=== PATIENT | female | born 1995 | race Caucasian/White ===

== ENCOUNTER → 2017-02-23 11:39 | Observation (INO) ==
[2017-02-23 09:07] LABS: Bilirubin,Urine Negative (Negative); Blood,Urine Moderate (Negative); Clarity,Urine Cloudy (Clear); Color,Urine Yellow (Yellow); Glucose,Urine (UA) Normal (Normal); Ketones,Urine Negative (Negative); Leukocyte Esterase,Urine Negative (Negative); Nitrite,Urine Negative (Negative); PH,Urine 6.5 pH Units (5.0-8.0); Protein,Urine Negative (Neg-Trace); Specific Gravity,Urine 1.022 (1.010-1.025); Urobilinogen,Urine Normal (Normal)
[2017-02-23 09:11] LABS: Bacteria,Urine Few per hpf (None-Few); Hyaline Casts,Urine None Seen per lpf (None-Few); Squamous Epithelial Cell,Urine Many per lpf (None-Few)
[2017-02-23 09:43] LABS: Amphetamine Screen,Urine Negative ng/mL (Cutoff=1000); Barbiturate Screen,Urine Negative ng/mL (Cutoff=200); Benzodiazepines Screen,Urine Negative ng/mL (Cutoff=200); Cannabinoid Screen,Urine Positive ng/mL (Cutoff = 50); Cocaine Screen,Urine Negative ng/mL (Cutoff= 300); Opiate Screen,Urine Negative ng/mL (Cutoff=300); Phencyclidine Screen,Urine Negative ng/mL (Cutoff=25)
--- NOTE | 2017-02-23 09:52 | OB/GYN History & Physical ---
Date of Encounter: 02/23/17 Time of Encounter: 09:42 Assessment and Plan (1) uterine contractions in third trimester, antepartum Current visit: Yes Status: Acute Reactive NST Nubain for pain control IV fluid bolus Consider SQ terbutaline if uterine irritability does not resolve with fluids and pain medication Extended monitoring Anticipate discharge home with labor precautions. Follow up in the office as scheduled and prn. (2) 31 weeks gestation of Current visit: Yes Status: Acute History of Present Illness Chief complaint: Contractions HPI: Ms. Gill is a 21 year old at 31 weeks and 5 days gestation that arrived to triage with c/o contractions that started at 0400. She denies headache, vision changes, epigastric pain, vaginal bleeding, and vaginal discharge. She has a history of gestational diabetes, Factor V, and multiple miscarriages. She admits to smoking marijuana regularly. She is seen by Dr Hale in the office and M. She denies intercourse in the past 48 hours. She states she only drinks milk and water and averages 7 16 oz bottles of water daily. Past Med Surg Social Fam HX - Past Medical History Medical history: other Psychiatric history: no psych history - Past Surgical History Surgical History: no surgical history - Social History Smoking Status: Former smoker Smokeless Tobacco Status: No Alcohol use: none Drug use: marijuana - Family History Father Living Status: Still Living Hx Family Endocrine Disorder: Yes (diabetes) Obstetrical History - Pregnancies : 5 Para: 0 Term: 0 : 0 Ab's: 4 Livin Medications and Allergies Enoxaparin [Lovenox] 40 mg SQ DAILY 09/02/16 [History] Pnv Cmb#21/Iron/Folic Acid [ Complete Caplet] 1 each PO DAILY 09/02/16 [ History] Progesterone,Micronized [Progesterone] 200 mg PO HS 09/02/16 [History] Docusate [Colace] 300 mg PO DAILY 12/03/16 [History] 3 Allergy/AdvReac Type Severity Reaction Status Date / Time No Known Allergies Allergy Verified 12/03/16 10:13 Review of System OB All systems PM: reviewed and no additional remarkable complaints except as stated Exam - Constitutional Constitutional: well developed, well nourished, no acute distress, average body habitus - HEENT HEENT: Normocephaly, Mucus Membranes Moist - Neck Neck exam: full ROM - Lungs Respiratory exam: CTAB - Cardiovascular Cardiovascular exam: RRR, +S1, +S2 - Abdomen Abdomen: Present: bowel sounds normal, gravid. Absent: non tender (Patient c/o lower back pain and suprapubic pain that comes and goes 7/10. No CVA tendernes present. Contractions palpate mild. ) - Extremities Extremities exam: normal capillary refill, normal inspection, radial pulses palpable and symmetrical - Vulva Vulva: bilateral: normal - Vagina Vagina: Present: normal moisture. Absent: discharge - Cervix Dilation: 0 (FT) Effacement: 50 Station: -4 - Comments Comments: SSE - cervix visually closed, normal vaginal moisture/discharge for gestation. Results Abnormal lab results Urine Clarity Cloudy (Clear) A 02/23/17 08:58 Urine Blood Moderate (Negative) H 02/23/17 08:58 Urine Microscopic RBC 5-15 per hpf (0-3) H 02/23/17 08:58 Urine Microscopic WBC 3-5 per hpf (0-3) H 02/23/17 08:58 Ur Squamous Epith Cells Many per lpf (None-Few) H 02/23/17 08:58 All other labs normal. - VTE Reasons for not Prescribing Prophylaxis: Treatment not Indicated - Low risk for VTE
[~2017-02-23 11:39] MED LIST: *HR* Nalbuphine 20 MG/ML AMPUL IVP PRN; Ringers Solution, Lactated 500 ML IVC ONE; Ringers Solution, Lactated 500 ML ONE
== END | disposition home or self-care (01) ==
LOC: 1NENULAB
PROVIDERS: ADMIT Advanced Practice Midwife; ATTEND Advanced Practice Midwife

== ENCOUNTER 2017-04-01 17:16 | Observation (INO) ==
[2017-04-01 13:21] LABS: Bilirubin,Urine Negative (Negative); Blood,Urine Moderate (Negative); Clarity,Urine Clear (Clear); Color,Urine Yellow (Yellow); Glucose,Urine (UA) Normal (Normal); Ketones,Urine Negative (Negative); Leukocyte Esterase,Urine Trace (Negative); Nitrite,Urine Negative (Negative); PH,Urine 6.5 pH Units (5.0-8.0); Protein,Urine Negative (Neg-Trace); Specific Gravity,Urine 1.019 (1.010-1.025); Urobilinogen,Urine Normal (Normal)
[2017-04-01 13:27] LABS: Bacteria,Urine Moderate per hpf (None-Few); Hyaline Casts,Urine None Seen per lpf (None-Few); Squamous Epithelial Cell,Urine Many per lpf (None-Few)
[2017-04-01 13:43] LABS: Amphetamine Screen,Urine Negative ng/mL (Cutoff=1000); Barbiturate Screen,Urine Negative ng/mL (Cutoff=200); Benzodiazepines Screen,Urine Negative ng/mL (Cutoff=200); Cannabinoid Screen,Urine Negative ng/mL (Cutoff = 50); Cocaine Screen,Urine Negative ng/mL (Cutoff= 300); Opiate Screen,Urine Negative ng/mL (Cutoff=300); Phencyclidine Screen,Urine Negative ng/mL (Cutoff=25)
[2017-04-01 13:46] LABS: Basophils % 0.3 %; Eosinophils # 0.1 K/mcL (0.0-0.6); Eosinophils % 0.4 %; Hematocrit 38.3 % (35.3-44.9); Hemoglobin 12.9 g/dL (11.5-15.4); Immature Granulocytes % 1.5 % (0-4); Lymphocytes # 2.1 K/mcL (0.6-4.6); Lymphocytes % 18.2 %; Mean Corpuscular HGB Conc 33.7 g/dL (31.6-35.5); Mean Corpuscular Hemoglobin 31.6 pg (28.0-33.3); Mean Corpuscular Volume 93.9 fL (83.0-100.0); Mean Platelet Volume 12.2 fL (9.4-12.4); Monocytes # 0.7 K/mcL (0.0-1.3); Monocytes % 6.2 %; Neutrophils # 8.6 K/mcL (1.6-8.9); Platelet Count 162 K/mcL (140-400); Red Blood Count 4.08 M/mcL (3.82-4.97); Red Cell Distribution Width 12.9 % (11.5-14.5); Segmented Neutrophils % 73.4 %
[2017-04-01 13:58] LABS: Albumin 3.7 g/dL (3.5-5.7); Bilirubin,Direct 0.1 mg/dL (0.0-0.2); Bilirubin,Indirect 0.2 mg/dL (0.0-1.2); Bilirubin,Total 0.3 mg/dL (0.3-1.0)
[2017-04-01 14:04] LABS: Albumin/Globulin Ratio 1.1 (1.1-2.2); Globulin 3.4 g/dL (2.4-3.5); Total Protein 7.1 g/dL (6.4-8.9)
[~2017-04-01 17:16] MED LIST changes: -Ringers Solution, Lactated 500 ML IVC ONE; -Ringers Solution, Lactated 500 ML ONE
--- NOTE | 2017-04-01 17:32 | OB/GYN Progress Note ---
Date of Encounter: 04/01/17 Time of Encounter: 14:20 - Assessment and Plan (1) 37 weeks gestation of Status: Acute (2) Left upper quadrant pain Status: Acute Plan: - amylase, lipase normal - Liver enzymes normal - UA hemolysis - US retroperitoneal insignificant findings - reactive NST - Nubain given for pain x1 Discharge home with tylenol and heat application for pain. Pain likely musculoskeletal in origin. Follow up in office with routine care and PRN. (3) Gestational diabetes Status: Acute Qualifiers: Gestational diabetes mellitus control: unspecified Trimester: third trimester Qualified Code(s): O24.419 - Gestational diabetes mellitus in , unspecified control (4) NST (non-stress test) reactive Status: Acute Subjective - Subjective Principal diagnosis: left upper quadrant pain Interval history: Jacqui is a 22-year-old female at 37+0 week presented to labor and delivery for a left upper quadrant abdominal pain. Patient states that pain began around 10:30 this morning after bending over and is intermittently sharp and does not continuously start. Patient denies having back pain, nausea, vomiting. Pain is currently 10/10 and worsened when taking deep breaths. Patient states that pain is not worsened when walking around. Patient has not had an appendectomy or cholecystectomy. Patient has had a history of kidney stones 3. Patient states that this does not feel like her previous kidney stones. Patient states she had her last bowel movement 2 days ago and this does not feel like constipation to her. Patient denies vaginal bleeding, leakage of fluid, contractions. Reports active movement. Patient's is complicated by gestational diabetes. Antepartum ROS: movement normal, no loss of fluid, no vaginal bleeding, no contractions Objective - Vital Signs Vital Signs: Intake and Output 04/01/17 04/01/17 04/01/17 07:59 15:59 23:59 Other: Weight 106 kg Patient Weight 04/01/17 23:59 Weight 106 kg - Exam FHR: auscultation normal (Reactive NST FHTs 150), category 1 Auscultation: bilateral: normal Abdomen: Present: normal appearance (nontender to palpation. Pain not reproducable), soft, gravid. Absent: tenderness Uterus: Present: normal. Absent: firm, tenderness - Labs Labs: Abnormal lab results WBC 11.7 K/mcL (4.3-11.1) H 04/01/17 13:36 Alkaline Phosphatase 116 Units/L (34-104) H 04/01/17 13:36 Urine Blood Moderate (Negative) H 04/01/17 13:14 Ur Leukocyte Esterase Trace (Negative) H 04/01/17 13:14 Urine Microscopic RBC 5-15 per hpf (0-3) H 04/01/17 13:14 Urine Microscopic WBC 5-15 per hpf (0-3) H 04/01/17 13:14 Ur Squamous Epith Cells Many per lpf (None-Few) H 04/01/17 13:14 Urine Bacteria Moderate per hpf (None-Few) H 04/01/17 13:14
[2017-04-01] MEDS ORDERED: Acetaminophen 325 MG TABLET PO ONE (18:41)
[2017-04-01] MEDS ORDERED: (Progesterone,Micronized [Progesterone] 200 MG) PO SCH (21:00)
[2017-04-02] MEDS ORDERED: *HR* Metformin 500 MG TABLET PO SCH (08:00)
[2017-04-02] MEDS ORDERED: Prenatal Vit/FA 1 EACH TABLET PO SCH (09:00)
[2017-04-02] MEDS ORDERED: *HR* Enoxaparin 40 MG/0.4 ML SYRINGE SQ SCH (09:00)
== END 2017-04-01 20:15 | disposition home or self-care (01) ==
LOC: 1NENULAB
PROVIDERS: ADMIT Obstetrics & Gynecology; ATTEND Obstetrics & Gynecology

== ENCOUNTER 2017-04-15 07:50 | Inpatient (IN) ==
[2017-04-15] MEDS ORDERED: Famotidine 20 MG/2 ML VIAL IVP PRN (08:15)
[2017-04-15] MEDS ORDERED: *HR* Nalbuphine 20 MG/ML AMPUL IVP PRN (08:15)
[2017-04-15] MEDS ORDERED: Naloxone 0.4 MG/ML INJ IVP PRN (08:15)
[2017-04-15 08:38] LABS: Basophils % 0.2 %; Eosinophils # 0.1 K/mcL (0.0-0.6); Eosinophils % 0.8 %; Hematocrit 37.6 % (35.3-44.9); Hemoglobin 12.5 g/dL (11.5-15.4); Immature Granulocytes % 1.6 % (0-4); Lymphocytes # 1.8 K/mcL (0.6-4.6); Lymphocytes % 18.7 %; Mean Corpuscular HGB Conc 33.2 g/dL (31.6-35.5); Mean Corpuscular Hemoglobin 31.3 pg (28.0-33.3); Mean Corpuscular Volume 94.2 fL (83.0-100.0); Mean Platelet Volume 12.2 fL (9.4-12.4); Monocytes # 0.5 K/mcL (0.0-1.3); Neutrophils # 7.1 K/mcL (1.6-8.9); Platelet Count 153 K/mcL (140-400); Red Blood Count 3.99 M/mcL (3.82-4.97); Red Cell Distribution Width 12.9 % (11.5-14.5); Segmented Neutrophils % 73.7 %
[2017-04-15 08:56] LABS: Amphetamine Screen,Urine Negative ng/mL (Cutoff=1000); Barbiturate Screen,Urine Negative ng/mL (Cutoff=200); Benzodiazepines Screen,Urine Negative ng/mL (Cutoff=200); Cannabinoid Screen,Urine Positive ng/mL (Cutoff = 50); Cocaine Screen,Urine Negative ng/mL (Cutoff= 300); Opiate Screen,Urine Negative ng/mL (Cutoff=300); Phencyclidine Screen,Urine Negative ng/mL (Cutoff=25)
[2017-04-15] MEDS ORDERED: miSOPROStol 100 MCG TABLET PO ONE (09:10)
--- NOTE | 2017-04-15 09:29 | OB Labor Progress Note ---
Date of Encounter: 04/15/17 Time of Encounter: 09:27 Labor Progress Note - Subjective Subjective: Patient resting in bed. Discussed POC with patient. Patient denies any questions or concerns. - Cervix Cervix: 2/80/-1 - Heart Tones Heart Tones: 145 bpm moderate variability +15x15 accels no decels noted. Cat 1 tracing - [place]: irregular - Interventions Interventions: SVE, Gross catheter placed for IOL. 30cc sterile water placed in gross balloon. Patient tolerated well. - Plan Plan: Continue labor management
[2017-04-15] MEDS ORDERED: Ringers Solution, Lactated 1,000 ML ONE ×4 (11:39→21:06)
--- NOTE | 2017-04-15 14:01 | OB/GYN History & Physical ---
Date of Encounter: 04/15/17 Time of Encounter: 08:00 Assessment and Plan (1) and not yet delivered in third trimester Current visit: Yes Status: Acute (2) 39 weeks gestation of Current visit: Yes Status: Acute (3) Elective induction of labor planned Current visit: Yes Status: Acute we will induce with gross catheter and cytotec (4) Factor 5 Leiden mutation, heterozygous Current visit: Yes Status: Acute (5) Gestational diabetes Current visit: No Status: Acute Qualifiers: Gestational diabetes mellitus control: unspecified Trimester: third trimester Qualified Code(s): O24.419 - Gestational diabetes mellitus in , unspecified control History of Present Illness HPI: Ms. Gill is a 22 year old female with a 5 para 0040 9-0/7 weeks by last menstrual period equal to a 8 and 1/7 week ultrasound who presented for induction of labor due to term . Patient is a gestational diabetic on metformin and has a history of a clotting disorder and had been on blood thinners by her speaker wirer prior to 38 weeks. She was on Lovenox this was recently switched over to heparin and then stopped. Patient was advised when she got into the 39 week range we would Go ahead and induce her. 0 positive, rubella positive GBS negative. Past Med Surg Social Fam HX - Past Medical History Medical history: other (gestational diabetes on metformin, factor 5 Leiden) Psychiatric history: anxiety, depression, prior suicide attempt - Past Surgical History Surgical History: no surgical history - Social History Smoking Status: Former smoker Smokeless Tobacco Status: No Alcohol use: none Drug use: marijuana Occupational status: unemployed Current living situation: Home - Independent Recent Out of Country Travel Within the Last 8 Weeks: No Exposure or Possible Exposure to Illness During Travel: No - Family History Father Adopted: No Living Status: Still Living Hx Family Cardiac Disorders: No Hx Family Respiratory Disorders: No Hx Family Cancer: No Hx Family GI Disorders: No Hx Family Genitourinary Disorders: No Hx Family Endocrine Disorder: Yes Hx Family Musculoskeletal Disorders: No Hx Family Neuromuscular Disorders: No Hx Family HEENT Disorders: No Hx Family Autoimmune Disorders: No Hx Family Reproductive Disorders: No Hx Family Psychosocial Disorders: No Hx Family Medical Disorders: No Obstetrical History - Pregnancies : 5 Para: 0 Term: 0 : 0 Ab's: 4 Livin Medications and Allergies Pnv Cmb#21/Iron/Folic Acid [ Complete Caplet] 1 each PO DAILY 09/02/16 [ History] Docusate [Colace] 300 mg PO DAILY 12/03/16 [History] metFORMIN [Glucophage] 500 mg PO 0800 03/04/17 [History] 3 Allergy/AdvReac Type Severity Reaction Status Date / Time No Known Allergies Allergy Verified 03/04/17 11:12 Review of System OB All systems PM: reviewed and no additional remarkable complaints except as stated Exam - Constitutional Constitutional: well developed, well nourished, no acute distress, average body habitus - HEENT HEENT: EOMI, PERRL, Mucus Membranes Moist - Neck Neck exam: full ROM - Cardiovascular Cardiovascular exam: RRR - Abdomen Abdomen: Present: bowel sounds normal, gravid - Cervix Dilation: 2 Effacement: 80 Station: -3 - Comments Comments: FHT's 140's occ contractions seen Results Result Diagrams: 04/15/17 08:29 04/15/17 08:30 Abnormal lab results Glucose 153 mg/dL (70-105) H 04/15/17 08:30 U Marijuana (THC) Screen Positive ng/mL (Cutoff = 50) H 04/15/17 08:29 All other labs normal. - VTE Reasons for not Prescribing Prophylaxis: Treatment not Indicated - Low risk for VTE
[2017-04-15] MEDS ORDERED: Oxytocin 20 units/ LR 1000 mL 20 UNIT/1,000 ML BAG IVC SCH (15:15)
--- NOTE | 2017-04-15 16:08 | OB Labor Progress Note ---
Date of Encounter: 04/15/17 Time of Encounter: 16:05 Labor Progress Note - Subjective Subjective: Patient resting in bed. Patient denies any pain at this time. Pitocin at 2 milliunits. Discussed POC with patient. Patient denies any questions or concerns. - Cervix Cervix: 5.5/80/-1 - Heart Tones Heart Tones: 135 bpm moderate variability +15x15 accels no decels noted. CAt. 1 tracing - [place] Vesta: 3-3.5 min apart - Interventions Interventions: SVE, AROM moderate amount of clear fluid. IUPC placed without difficulty. Patient tolerated well. - Plan Plan: Continue labor management Patient to get Epidural when desires for pain management
[2017-04-15] MEDS ORDERED: Epidural Premix (fent/bupiv) 110 ML EP SCH (16:15)
[2017-04-15] MEDS ORDERED: Epidural Premix (fent/bupiv) 110 ML EP ONE (16:25)
--- NOTE | 2017-04-15 17:27 | Anesthesia Evaluation PreOp ---
<Zully Oneal R - Last Filed: 04/15/17 17:25> Date of Encounter: 04/15/17 Time of Encounter: 16:30 - Past History Planned Operation: [facility] Cardiac History: Denies any Significant Hx Pulmonary History: Denies Any Significant HX SPEEDER FRAME TENDER History: Denies Any Significant HX Other Medical History: Denies Any Significant HX Anesthesia History: No Prior Anesthetic Complications : Yes (39) Test: Positive Alcohol Use: none Drug use: none, marijuana Medications and Allergies Pnv Cmb#21/Iron/Folic Acid [ Complete Caplet] 1 each PO DAILY 09/02/16 [ History] Docusate [Colace] 300 mg PO DAILY 12/03/16 [History] metFORMIN [Glucophage] 500 mg PO 0800 03/04/17 [History] 3 Allergy/AdvReac Type Severity Reaction Status Date / Time No Known Allergies Allergy Verified 03/04/17 11:12 - Meds/Allergy Pre-op Review Medications Reviewed: Yes Allergies Reviewed: No Beta Blockers on Current Med List: No Anesthesia Results - Labs 04/15/17 08:29 04/15/17 08:30 Anesthesia Exam - HEENT Pupil (Motor): Pupils equal Mallampati: II Teeth: Normal Oral Opening: Greater than 3 - SPEEDER FRAME TENDER LOC: Oriented SPEEDER FRAME TENDER Motor: Normal RUE, Normal LUE, Normal RLE, Normal LLE, Normal Face SPEEDER FRAME TENDER Sensory: Normal: RUE, LUE, RLE, LLE, Face - Cardiac Rhythm: Regular Murmur: None JVD: No Carotid Bruit: No - Pulmonary Breath Sounds: bilateral Clear Respiratory Effort: Symmetrical - Additional Findings factor 5 clotting disorder last heparin dose [address] Martinez will proceed with [facility] Anesthesia Assess/Plan ASA Score: 2 Modified Cunningham Scale for Level of Consciousness: Cooperative, oriented, and tranquil Anesthetic Plan: Regional Autologous Blood: No Monitoring Plan: Standard Monitors <Nilton Hale - Last Filed: 04/15/17 20:59> Date of Encounter: 04/15/17 Anesthesia Results - Labs 04/15/17 08:29 04/15/17 08:30
--- NOTE | 2017-04-15 17:30 | Anesthesia Procedures ---
Date of Encounter: 04/15/17 Time of Encounter: 16:30 Procedures: Anesthesia - Epidural/Spinal Patient ID/Chart reviewed: Yes Patient examined: Yes OB Eval: Gestational age: 39 OB Eval: : 5 OB Eval: Hx Para: 0 OB Eval: Contractions: Non-stressed pattern Consent Obtained: Yes Supplemental Oxygen: None/Room Air Site Prep: Aseptic Technique, Sterile prep and drape, Povidone-Iodine 1% Patient position: upright Amount of Local Anesthetic used: 3 Touhy Needle Gauge: 18 Touhy Needle Depth (cm): 8 Catheter Depth at Skin (cm): 12 Test Dose (1.5% Lido + Epi): Volume given (mls): 3 Test Dose Result: Negative Loading Dose Administered: Thru Catheter Infusion Rate (mls/hr): [address]: Tegaderm, Tape Interspace Used: L4-L5 Loss of Resistance (ALO): Yes Blood: No CSF: No Paresthesia: No Vitals + FHT's: stable throughout see nursing notes
--- NOTE | 2017-04-15 17:59 | OB Labor Progress Note ---
Date of Encounter: 04/15/17 Time of Encounter: 18:00 Labor Progress Note - Subjective Subjective: Patient comfortable after epidural not feeling contractions anymore. - Cervix Cervix: 5/80/-1 - Heart Tones Heart Tones: heart tones 140s reactive - [place] Che[place]: Contractions every 2 minutes and adequate - Plan Plan: Continue current care
--- NOTE | 2017-04-15 21:01 | OB Labor Progress Note ---
Date of Encounter: 04/15/17 Time of Encounter: 21:00 Labor Progress Note - Subjective Subjective: patient still comfortable - Cervix Cervix: 8/90/+1 - Heart Tones Heart Tones: FHT's 140's reactive - [place]: contractions every 2 min - Plan Plan: anticipate
[2017-04-15] MEDS ORDERED: Lidocaine -MPF 1% 2 ML VIAL ONE (23:38)
--- NOTE | 2017-04-16 00:20 | OB/GYN Procedure Note ---
Delivery - Delivery Date: 04/16/17 Provider: Nilton Hale Intrapartum events: none Delivery induction: AROM, oxytocin, gross, misoprostol Delivery monitor: external FHT, external uterine, internal uterine Anesthesia: local, epidural Estimated Blood Loss: 100 - Infant (s) A Delivery Date: 04/15/17 Delivery Time: 23:22 Presentation: vertex Position: JONATHAN Route of delivery: Gender: Male Viability: Viable Pounds: 7 Ounces: 14 Weight Gram: 3.58 kg at 1 minute: 8 at 5 mins: 9 Shoulder Dystocia: not encountered Specimens collected: cord blood Placenta: spontaneous Cord: 3 umbilical vessels - Repair Episiotomy: none Laceration Description: Perineal - 2nd Degree - Complications Delivery complications: none Delivery comments: of a viable male in JONATHAN presentation at 2322, OB Alexia, 1st Assist Gloria OMS 3, anesthesia epidural local, 2nd degree laceration noted repaired with 3 O vicryl usual fashion, cervix vagina intact, EBL 100cc. - Disposition Mom disposition: stable in LDR disposition: stable in LDR
[2017-04-16] MEDS ORDERED: Oxytocin 20 units/ LR 1000 mL 20 UNIT/1,000 ML BAG IVC ONE (02:11)
[2017-04-16] MEDS ORDERED: Oxytocin 20 units/ LR 1000 mL 20 UNIT/1,000 ML BAG IVC SCH (02:11)
[2017-04-16] MEDS ORDERED: *HR* HYDROcodone/Acet 5/325 mg TABLET PO PRN (02:11)
[2017-04-16] MEDS ORDERED: Measles/Mumps/Rubella Vacc 0.5 ML VIAL SQ PRN (02:11)
[2017-04-16] MEDS ORDERED: Acetaminophen 325 MG TABLET PO PRN (02:11)
[2017-04-16 04:52] LABS: Basophils % 0.1 %; Hematocrit 35.4 % (35.3-44.9); Immature Granulocytes % 0.8 % (0-4); Lymphocytes # 1.3 K/mcL (0.6-4.6); Lymphocytes % 7.7 %; Mean Corpuscular HGB Conc 33.9 g/dL (31.6-35.5); Mean Corpuscular Volume 94.4 fL (83.0-100.0); Mean Platelet Volume 12.4 fL (9.4-12.4); Monocytes # 0.9 K/mcL (0.0-1.3); Monocytes % 5.1 %; Neutrophils # 14.5 K/mcL (1.6-8.9); Platelet Count 143 K/mcL (140-400); Red Blood Count 3.75 M/mcL (3.82-4.97); Red Cell Distribution Width 12.8 % (11.5-14.5); Segmented Neutrophils % 86.3 %
[2017-04-16] MEDS: Prenatal Vit/FA 1 EACH TABLET PO SCH (07:58)
[2017-04-16] MEDS ORDERED: NON-FORMULARY MEDICATION 1 EACH EACH (Pnv Cmb#21/Iron/Folic Acid [Prenatal Complete Caplet PO SCH (09:00)
--- NOTE | 2017-04-16 10:08 | OB/GYN Progress Note ---
Date of Encounter: 04/16/17 Time of Encounter: 10:06 - Assessment and Plan (1) Vaginal delivery Current Visit: Yes Status: Acute Continue routine care. Meeting day one milestones. Anticipate discharge tomorrow. (2) Factor 5 Leiden mutation, heterozygous Current Visit: Yes Status: Acute Aspirin 81 mg ordered daily. To start now. Plan to discharge home with same dose. (3) Gestational diabetes Current Visit: No Status: Acute Patient was on Metformin during . BS today was 153 but was drawn shortly after breakfast Fasting blood sugar scheduled for 0400 tomorrow. Qualifiers: Gestational diabetes mellitus control: unspecified Trimester: third trimester Qualified Code(s): O24.419 - Gestational diabetes mellitus in , unspecified control (4) Breast feeding status of mother Current Visit: Yes Status: Acute support prn (5) History of suicide attempt Current Visit: Yes Status: Acute Social service consult ordered. Will begin Zoloft 25 mg po daily for one week then increase to 50 mg daily. Subjective - Subjective Principal diagnosis: S/P vaginal delivery Interval history: Patient resting in bed this morning. States she is completely pain free and feels great. When asked about Lovenox , patient states her crystal lapper as well as Dr. Hale stated she would only need to continue if she had a . She states they told her she would need to take a baby Aspirin . Informed patient there will be a fasting blood sugar obtained in the morning. Patient with history of suicide attempt and depression. Requests restarting meds at this point. Patient reports: appetite normal, voiding normally, pain well controlled, ambulating normally : doing well Objective - Latest Vital Signs Latest vital signs: Vital Signs Temp Pulse Pulse Resp BP Pulse Ox 04/16/17 07:40 98.2 F 78 12 119/79 98 04/16/17 04:15 98.2 F 62 16 112/71 97 04/16/17 03:00 98.1 F 84 84 16 110/69 96 04/16/17 02:00 98.2 F 65 16 124/72 96 Intake and Output 04/15/17 04/16/17 04/16/17 23:59 07:59 15:59 Intake Total 240 / 240 Output Total 1050 / 1050 Balance -810 / -810 Intake: Oral 240 / 240 Output: Urine 1050 / 1050 Other: Meal snack - cereal Percent of Meal Consumed 100% Weight 104.5 kg Patient Weight 04/16/17 23:59 Weight 104.5 kg - Exam Lungs: bilateral: normal Chest: Normal S1, Normal S2 Extremities: Present: normal Abdomen: Present: normal appearance, soft Uterus: Present: normal, firm Uterus Position: 2 Fingers Below Umbilicus - Labs Labs: Laboratory Results - last 24 hr 04/15/17 04/16/17 08:30 04:21 WBC 16.8 H D RBC 3.75 L Hgb 12.0 Hct 35.4 MCV 94.4 MCH 32.0 MCHC 33.9 RDW 12.8 Plt Count 143 MPV 12.4 Immature Gran % 0.8 Seg Neutrophils % 86.3 Lymphocytes % 7.7 Monocytes % 5.1 Eosinophils % 0.0 Basophils % 0.1 Neutrophils # 14.5 H Lymphocytes # 1.3 Monocytes # 0.9 Eosinophils # 0.0 Basophils # 0.0 Glucose 153 H
[2017-04-16] MEDS: Aspirin 81 MG TAB.CHEW PO SCH (10:31)
[2017-04-16] MEDS: Ibuprofen 600 MG TABLET PO PRN (21:05)
[2017-04-17 08:24] VITALS: BP 119/76
--- NOTE | 2017-04-17 10:52 | Discharge Summary ---
Date of Encounter: 04/17/17 Time of Encounter: 10:48 - Discharge Diagnosis (1) Breast feeding status of mother Priority: Secondary Status: Acute (2) Factor 5 Leiden mutation, heterozygous Priority: Secondary Status: Acute Comments: Will discharge home on baby aspirin (3) History of suicide attempt Priority: Secondary Status: Acute Comments: We will discharge on Zoloft 25 mg, then increase to 50 mg after 1 week (4) Vaginal delivery Priority: Primary Status: Acute Comments: Anal managed on by mouth pain medication, tolerating diet, voiding without difficulty, patient desires discharge - Discharge Medications Prescriptions: Ibuprofen [Motrin] 600 mg PO Q6HR PRN #60 tablet PRN Reason: Cramping Breast Pump [BREAST PUMP] 1 each .ROUTE AD #1 each Docusate [Colace] 100 mg PO BID #60 capsule Sertraline [Zoloft] 25 mg PO DAILY #7 tablet Sertraline [Zoloft] 50 mg PO DAILY #30 tablet Home Medications: Pnv Cmb#21/Iron/Folic Acid [ Complete Caplet] 1 each PO DAILY 09/02/16 [ History] Acetaminophen [Tylenol] 650 mg PO Q6HR PRN tablet 04/17/17 [Rx] Aspirin 81 mg PO DAILY #0 tab.chew 04/17/17 [Rx] Breast Pump [BREAST PUMP] 1 each .ROUTE AD #1 each 04/17/17 [Rx] Docusate [Colace] 100 mg PO BID #60 capsule 04/17/17 [Rx] Ibuprofen [Motrin] 600 mg PO Q6HR PRN #60 tablet 04/17/17 [Rx] Vit/FA 1 each PO DAILY tablet 04/17/17 [Rx] Sertraline [Zoloft] 25 mg PO DAILY #7 tablet 04/17/17 [Rx] Sertraline [Zoloft] 50 mg PO DAILY #30 tablet 04/17/17 [Rx] Allergies/Adverse Reactions: 3 Allergy/AdvReac Type Severity Reaction Status Date / Time No Known Allergies Allergy Verified 03/04/17 11:12 Data Procedures and tests throughout hospitalization: Laboratory Tests 04/15/17 04/15/17 04/15/17 08:29 08:29 08:30 WBC 9.6 RBC 3.99 Hgb 12.5 Hct 37.6 MCV 94.2 MCH 31.3 MCHC 33.2 RDW 12.9 Plt Count 153 MPV 12.2 Immature Gran % 1.6 Seg Neutrophils % 73.7 Lymphocytes % 18.7 Monocytes % 5.0 Eosinophils % 0.8 Basophils % 0.2 Neutrophils # 7.1 Lymphocytes # 1.8 Monocytes # 0.5 Eosinophils # 0.1 Basophils # 0.0 Glucose 153 H POC Glucose Urine Opiates Screen Negative Ur Barbiturates Screen Negative Ur Phencyclidine Scrn Negative Ur Amphetamines Screen Negative U Benzodiazepines Scrn Negative Urine Cocaine Screen Negative U Marijuana (THC) Screen Positive H 04/16/17 04/17/17 04:21 04:40 WBC 16.8 H D RBC 3.75 L Hgb 12.0 Hct 35.4 MCV 94.4 MCH 32.0 MCHC 33.9 RDW 12.8 Plt Count 143 MPV 12.4 Immature Gran % 0.8 Seg Neutrophils % 86.3 Lymphocytes % 7.7 Monocytes % 5.1 Eosinophils % 0.0 Basophils % 0.1 Neutrophils # 14.5 H Lymphocytes # 1.3 Monocytes # 0.9 Eosinophils # 0.0 Basophils # 0.0 Glucose POC Glucose 82 Urine Opiates Screen Ur Barbiturates Screen Ur Phencyclidine Scrn Ur Amphetamines Screen U Benzodiazepines Scrn Urine Cocaine Screen U Marijuana (THC) Screen Labs on day of discharge: Labs from last 24 hours 04/17/17 04:40 POC Glucose 82 Date of admission: 04/15/17 07:50 Primary care physician: MARGARITA JAMES Consults: 04/16/17 02:11 Consult to Business Services Sales Representative [CONS] Routine Comment: Vaginal delivery, consult needed 04/16/17 09:58 Consult to Entry Level Accounting Clerk (W&C) [CONS] Routine Reason For Exam: Reason for SW Consult: Positive THC on admission Discharging clinician: Pat Hall Anticipated date of discharge: 04/17/17 - Patient Status Disposition: Home, Self-Care Condition: Good Functional capacity at discharge: independent ambulation Overall status at discharge: patient is back to baseline - Discharge Instructions Follow Up With: NONE,PCP [Primary Care Provider] - - Diet and Activity Activity: resume usual activities as tolerated Diet: regular diet Hospital Course Reason for admission: induction of labor, IUP at term Delivery: Episiotomy: none Laceration: 2nd degree Other procedures: none complications: none Discharge diagnosis: IUP at term delivered baby: male Hospital course: Delivery - Delivery Date: 04/16/17 Provider: Nilton Hale Intrapartum events: none Delivery induction: AROM, oxytocin, gross, misoprostol Delivery monitor: external FHT, external uterine, internal uterine Anesthesia: local, epidural Estimated Blood Loss: 100 - Infant (s) A Infant Delivery Date: 04/15/17 Delivery Time: 23:22 Presentation: vertex Position: JONATHAN Route of delivery: Gender: Male Viability: Viable Pounds: 7 Ounces: 14 Weight Gram: 3.58 kg at 1 minute: 8 at 5 mins: 9 Shoulder Dystocia: not encountered Specimens collected: cord blood Placenta: spontaneous Cord: 3 umbilical vessels - Repair Episiotomy: none Laceration Description: Perineal - 2nd Degree - Complications Delivery complications: none Delivery comments: of a viable male in JONATHAN presentation at 2322, OB Alexia, 1st Assist Gloria OMS 3, anesthesia epidural local, 2nd degree laceration noted repaired with 3 O vicryl usual fashion, cervix vagina intact, EBL 100cc. - Disposition Mom disposition: stable in , and appropriate for discharge Time Attestation: Total time spent providing and/or coordinating discharge services: Time Spent: Less than 30 minutes Exam - Constitutional Vitals: Temp Pulse Resp BP Pulse Ox 97.8 F 62 16 119/76 98 04/17/17 07:45 04/17/17 07:45 04/17/17 07:45 04/17/17 07:45 04/17/17 07:45 General appearance IM: A&O X 3 - Respiratory Respiratory exam: Present: CTAB - Cardiovascular Cardiovascular exam IM: Present: RRR - GI/Abdominal GI/Abdominal exam IM: soft - Uterine Tone: Firm Uterus Position: At Umbilicus - Extremities Exam Extremities exam IM: Present: normal capillary refill, normal inspection - Neurological Exam Neurological exam: normal gait, oriented X3 - Psychiatric Additional comments: Reports good mood, but patient does have history of suicide attempts, we will start Zoloft
[2017-04-17] MEDS: Ibuprofen 600 MG TABLET PO PRN (11:22)
[2017-04-17] MEDS: Aspirin 81 MG TAB.CHEW PO SCH (11:22)
[2017-04-17] MEDS: Prenatal Vit/FA 1 EACH TABLET PO SCH (11:22)
== END 2017-04-17 13:45 | disposition home or self-care (01) | DRG 560 ==
LOC: 1NENULAB 07:50 → 1NENUOBS 04-16 02:10
PROVIDERS: ADMIT Obstetrics & Gynecology; ATTEND Obstetrics & Gynecology

== ENCOUNTER → 2018-08-08 13:52 | Observation (INO) ==
--- NOTE | 2018-08-08 13:25 | OB/GYN Progress Note ---
Date of Encounter: 08/08/18 Time of Encounter: 13:05 Subjective - Subjective Principal diagnosis: Vaginal Pressure Interval history: Ms Dennison, oma at 37 weeks and 5 days presents to triage with c/o vaginal pressure that has not gotten better since she was seen earlier this week. She also states that she had intercourse yesterday. She states positive movement. She denies headaches, vision changes, epigastric pain, leaking of f luid, and vaginal discharge/bleeding. She is seen by Dr Hale for her . She is a A2GDM and has factor 5 and is currently on lovenox. She has had multiple first trimester losses. She has a short interval. Antepartum ROS: movement normal Objective - Vital Signs Vital Signs: Intake and Output 08/07/18 08/08/18 08/08/18 23:59 07:59 15:59 Other: Weight 104 kg Patient Weight 08/08/18 23:59 Weight 104 kg - Exam FHR: auscultation normal, category 1 (125 baseline; 15 x 15 accels no decels; one contraction noted while on monitor) Abdomen: Present: normal appearance, soft, gravid Uterus: Present: normal. Absent: firm Cervical dilation: 4 Cervix effacement: 80 station: ballottable
[2018-08-08 13:31] LABS: Amphetamine Screen,Urine Negative ng/mL (Cutoff=1000); Barbiturate Screen,Urine Negative ng/mL (Cutoff=200); Benzodiazepines Screen,Urine Negative ng/mL (Cutoff=200); Cannabinoid Screen,Urine Positive ng/mL (Cutoff = 50); Cocaine Screen,Urine Negative ng/mL (Cutoff= 300); Opiate Screen,Urine Negative ng/mL (Cutoff=300); Phencyclidine Screen,Urine Negative ng/mL (Cutoff=25)
[~2018-08-08 13:52] MED LIST changes: -*HR* Nalbuphine 20 MG/ML AMPUL IVP PRN; +Terconazole Vag CRM 20 GM TUBE VG SCH
[2018-08-08 14:10] LABS: Candida DNA Not Detected (Not Detect); Gardnerella DNA Not Detected (Not Detect); Trichomonas DNA Not Detected (Not Detect)
== END | disposition home or self-care (01) ==
LOC: 1NENULAB
PROVIDERS: ADMIT Advanced Practice Midwife; ATTEND Advanced Practice Midwife

== ENCOUNTER 2018-08-17 06:00 | Inpatient (IN) ==
[2018-08-17] MEDS ORDERED: Epidural Premix (fent/bupiv) 110 ML EP SCH (06:45)
[2018-08-17] MEDS ORDERED: Ringers Solution, Lactated 1,000 ML ONE (06:46)
[2018-08-17] MEDS ORDERED: Famotidine 20 MG/2 ML VIAL IVP PRN (06:50)
[2018-08-17] MEDS ORDERED: Ondansetron 4 MG/2 ML VIAL IVP PRN (06:50)
[2018-08-17] MEDS ORDERED: Naloxone 0.4 MG/ML INJ IVP PRN (06:50)
[2018-08-17] MEDS ORDERED: Metoclopramide 10 MG/2 ML VIAL IVP PRN (06:50)
[2018-08-17] MEDS ORDERED: *HR* Nalbuphine 10 MG/ML AMPUL IVP PRN (06:50)
--- NOTE | 2018-08-17 06:57 | Anesthesia Evaluation PreOp ---
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 (no hx. of clotting eposides reported)) Anesthesia History: No Prior Anesthetic Complications, Past Anesthesia (previous epidural "I jumped and caused the epidural to mess up a little - causing long lasting pain at previous site")) Other Medical History: Diabetes Type II Anesthesia History: No Prior Anesthetic Complications, Past Anesthesia Alcohol Use: none Drug use: marijuana Medications and Allergies Pnv Cmb#21/Iron/Folic Acid [ Complete Caplet] 1 each PO DAILY 09/02/16 [History] Vit/FA 1 each PO DAILY tablet 04/17/17 [Rx] Metformin HCl 500 mg PO DAILY 08/05/18 [History] Metformin HCl [Glucophage] 1,000 mg PO DAILY 08/05/18 [History] Allergy/AdvReac Type Severity Reaction Status Date / Time No Known Allergies Allergy Verified 08/08/18 13:14 Anesthesia Exam - HEENT Pupil (Motor): Pupils equal Mallampati: III Teeth: Normal Oral Opening: Greater than 3 - FERTILIZER LOADER LOC: Oriented FERTILIZER LOADER Motor: Normal RUE, Normal LUE, Normal RLE, Normal LLE, Normal Face FERTILIZER LOADER Sensory: Normal: RUE, LUE, RLE, LLE, Face - Cardiac Rhythm: Regular Murmur: None - Pulmonary Breath Sounds: bilateral Clear Respiratory Effort: Symmetrical Anesthesia Assess/Plan ASA Score: 3 Level of consciousness: Cooperative, Oriented Anesthetic Plan: General, Spinal, Epidural Monitoring Plan: Standard Monitors Recovery Plan: PACU
[2018-08-17] MEDS ORDERED: Ringers Solution, Lactated 1,000 ML IVC SCH (07:00)
[2018-08-17] MEDS ORDERED: Oxytocin 20 units/ LR 1000 mL 20 UNIT/1,000 ML BAG IVC SCH ×2 (07:00→18:40)
[2018-08-17] MEDS ORDERED: 0.9 % Sodium Chloride 1,000 ML IVC SCH (07:30)
[2018-08-17 07:38] LABS: Basophils % 0.2 %; Eosinophils # 0.1 K/mcL (0.0-0.6); Eosinophils % 0.5 %; Immature Granulocytes % 1.4 % (0-4); Lymphocytes # 2.2 K/mcL (0.6-4.6); Mean Corpuscular HGB Conc 33.3 g/dL (31.6-35.5); Mean Corpuscular Hemoglobin 32.5 pg (28.0-33.3); Mean Corpuscular Volume 97.6 fL (83.0-100.0); Mean Platelet Volume 13.4 fL (9.4-12.4); Monocytes # 0.8 K/mcL (0.0-1.3); Monocytes % 6.9 %; Neutrophils # 8.8 K/mcL (1.6-8.9); Platelet Count 157 K/mcL (140-400); Red Blood Count 3.69 M/mcL (3.82-4.97); Red Cell Distribution Width 13.2 % (11.5-14.5); White Blood Count 12.1 K/mcL (4.3-11.1)
[2018-08-17 07:41] LABS: Amphetamine Screen,Urine Negative ng/mL (Cutoff=1000); Barbiturate Screen,Urine Negative ng/mL (Cutoff=200)
[2018-08-17 07:42] LABS: Benzodiazepines Screen,Urine Negative ng/mL (Cutoff=300); Cannabinoid Screen,Urine Positive ng/mL (Cutoff = 50); Cocaine Screen,Urine Negative ng/mL (Cutoff= 300); Opiate Screen,Urine Negative ng/mL (Cutoff=300); Phencyclidine Screen,Urine Negative ng/mL (Cutoff=25)
--- NOTE | 2018-08-17 08:33 | OB/GYN History & Physical ---
Date of Encounter: 08/17/18 Time of Encounter: 08:24 Assessment and Plan (1) and not yet delivered in third trimester Current visit: Yes Status: Acute (2) 39 weeks gestation of Current visit: No Status: Acute (3) Elective induction of labor planned Current visit: No Status: Acute Patient was induced with Pitocin plan is to anticipate vaginal delivery (4) Factor 5 Leiden mutation, heterozygous Current visit: No Status: Acute (5) Gestational diabetes Current visit: No Status: Acute Patient we will get every 6 hour Accu-Cheks at this time Qualifiers: Gestational diabetes mellitus control: oral hypoglycemic-controlled Trimester: third trimester Qualified Code(s): O24.415 - Gestational diabetes mellitus in , controlled by oral hypoglycemic drugs (6) History of suicide attempt Current visit: No Status: Acute History of Present Illness HPI: Ms. Dennison is a 23 year old female 8 para 1061 at 39-0/7 weeks who presented for induction of labor secondary term with favorable cervix. Patient is an A2 gestational diabetic on metformin. She has been managed by maternal medicine along with myself. She has been getting twice a week NSTs which have been reactive. Last ultrasound by maternal medicine had appropriate growth of the baby. She was noted to have polyhydramnios on a recent ultrasound that we performed with an CELIA of a 25 that has been stable. Patient had 2-3 visits over the last couple weeks to labor and delivery for contractions had dilated to 4 cm but no further cervical change was noted, patient states good movement not really feeling any contractions today and no leaking of fluid. Patient is GBS negative, Rh+, rubella positive Varicella equivocal. Past Med Surg Social Fam HX - Past Medical History Source: patient, old records reviewed Medical history: other Additional medical history: factor 5, gestational Diabetic Psychiatric history: anxiety, depression, prior suicide attempt - Past Surgical History Surgical History: no surgical history - Social History Smoking Status: Current every day smoker Smokeless Tobacco Status: No Alcohol use: none Drug use: marijuana Occupational status: unemployed Current living situation: Home - Independent Activity Level: Independent ambulation Recent Out of Country Travel Within the Last 8 Weeks: No Exposure or Possible Exposure to Illness During Travel: No - Family History Father Adopted: No Family Member Ethnicity: Non- Living Status: Still Living Hx Family Cardiac Disorders: Yes (HTN) Hx Family Respiratory Disorders: No Hx Family Cancer: No Hx Family GI Disorders: No Hx Family Endocrine Disorder: Yes (diabetes type 2) Hx Family Neuromuscular Disorders: No Hx Family HEENT Disorders: No Hx Family Autoimmune Disorders: No - Additional Family History Additional family history: Family history noncontributory Obstetrical History - Pregnancies : 8 Para: 1 Term: 1 : 0 Ab's: 6 Livin Medications and Allergies Pnv Cmb#21/Iron/Folic Acid [ Complete Caplet] 1 each PO DAILY 09/02/16 [History] Vit/FA 1 each PO DAILY tablet 04/17/17 [Rx] Metformin HCl 500 mg PO DAILY 08/05/18 [History] Metformin HCl [Glucophage] 1,000 mg PO DAILY 08/05/18 [History] Allergy/AdvReac Type Severity Reaction Status Date / Time No Known Allergies Allergy Verified 08/08/18 13:14 Review of System OB All systems PM: reviewed and no additional remarkable complaints except as stated Exam - Constitutional Constitutional: well developed, well nourished, no acute distress, average body habitus - HEENT HEENT: EOMI, PERRL, Mucus Membranes Moist - Neck Neck exam: full ROM - Lungs Respiratory exam: CTAB - Cardiovascular Cardiovascular exam: RRR - Abdomen Abdomen: Present: bowel sounds normal, gravid ( heart tones 140s reactive contractions irregular) - Cervix Dilation: 4 Effacement: 80 Station: -3 Results Result Diagrams: 08/17/18 06:35 08/17/18 06:35 Abnormal lab results WBC 12.1 K/mcL (4.3-11.1) H 08/17/18 06:35 RBC 3.69 M/mcL (3.82-4.97) L 08/17/18 06:35 MPV 13.4 fL (9.4-12.4) H 08/17/18 06:35 U Marijuana (THC) Screen Positive ng/mL (Cutoff = 50) H 08/17/18 06:35 All other labs normal. - VTE Reasons for not Prescribing Prophylaxis: Treatment not Indicated - Low risk for VTE
--- NOTE | 2018-08-17 12:15 | OB Labor Progress Note ---
Date of Encounter: 08/17/18 Time of Encounter: 12:13 Labor Progress Note - Subjective Subjective: Patient getting uncomfortable still tolerating the contractions. Still not wanting an epidural at this time - Cervix Cervix: 5/80/-1 AROM large amt of clear fluid - Heart Tones Heart Tones: heart tones 140s reactive scalp monitor placed - [place]: IUPC placed contractions every 2 min - Interventions Interventions: Continue current care anticipate vaginal delivery
--- NOTE | 2018-08-17 14:43 | Anesthesia Procedures ---
Date of Encounter: 08/17/18 Time of Encounter: 13:45 Procedures: Anesthesia - Epidural/Spinal Patient ID/Chart reviewed: Yes Patient examined: Yes OB Eval: Gestational age: term OB Eval: : 8 OB Eval: Hx Para: 1 OB Eval: Dilated at (cm): 7 OB Eval: Contractions: Non-stressed pattern Consent Obtained: Yes Supplemental Oxygen: None/Room Air Site Prep: Aseptic Technique, Sterile prep and drape, Povidone-Iodine 1% Patient position: upright Local Anesthetic: Lidocaine 1% Amount of Local Anesthetic used: 3 Touhy Needle Gauge: 18 Touhy Needle Depth (cm): 9 Catheter Depth at Skin (cm): 20 Test Dose (1.5% Lido + Epi): Volume given (mls): 5 Test Dose Result: Negative Loading Dose: Other: 10ml of epidural pharm bag premix Loading Dose Administered: Thru Catheter Infusion Med: 0.125% Bupivacaine w/ 2 mcg/ml Fentanyl Infusion Rate (mls/hr): 15 ([id number]) Catheter Secured in Place: Tegaderm, Tape Interspace Used: L3-L4 Loss of Resistance (ALO): Yes Blood: No CSF: No Paresthesia: No Procedure: pt tolerated procedure well. no complications. vss. fhr stable.
--- NOTE | 2018-08-17 18:08 | OB/GYN Procedure Note ---
Delivery - Delivery Date: 08/17/18 Provider: Nilton Hale Intrapartum events: none Delivery induction: AROM, oxytocin Delivery monitor: external FHT, external uterine, internal FHT, internal uterine Anesthesia: epidural Quantitated Blood Loss: 100 - (s) Infant A Delivery Date: 08/17/18 Infant Delivery Time: 15:30 Presentation: vertex Position: CHU[place] Route of delivery: Gender: Female Viability: Viable Pounds: 6 Ounces: 8 Weight Gram: 2.96 kg at 1 minute: 9 at 5 mins: 9 Shoulder Dystocia: not encountered Specimens collected: cord blood Placenta: spontaneous Cord: 3 umbilical vessels - Repair Episiotomy: none Laceration Description: None - Complications Delivery complications: none Delivery comments: Patient is a 23-year-old 8 para 1061 at 39-0/7 weeks who presented for induction of labor secondary to term with favorable cervix. Patient is a gestational diabetic on metformin and was dilated 4 cm. It was recommended when she gets to 39 weeks that she be delivered because she was already dilated 4 cm she was started on Pitocin when she was having good contractions she was artificially ruptured large amounts of clear fluid. Patient progressed appropriately received an epidural which is approximately 7-8 cm then patient became complete. Patient pushed twice and delivered a viable female in left occiput anterior presentation at 1530. There was no nuchal cord, no meconium, the was well suctioned on the abdomen. Apgars were 9 at 1 minute, 9 at 5 minutes, weight was 6 lbs. 8 oz. Placenta was sent to spontaneously with a three-vessel cord, fleet administrative assistant Dr. Hale, first crusher Dr. Pineda PGY 1, anesthesia epidural, estimated blood loss 100 mL. Perineum cervix and vagina was visualized intact there was no lacerations noted. She will be observed 2 hours before being taken to the floor. - Disposition Mom disposition: stable in LDR [place] disposition: stable in LDR
[2018-08-17] MEDS ORDERED: D5% in Water 1,000 ML IVC PRN (18:40)
[2018-08-17] MEDS ORDERED: Benzocaine/Menthol 56 GM AEROSOL SPRAY TP PRN (18:40)
[2018-08-17] MEDS ORDERED: Dextrose Gel 15 GM/37.5 ML TUBE PO PRN ×2 (18:40)
[2018-08-17] MEDS ORDERED: Lanolin 7 G OINT...G. TP PRN (18:40)
[2018-08-17] MEDS ORDERED: *HR* Dextrose 50 % in Water (Syg) 50 ML SYRINGE IVP PRN (18:40)
[2018-08-17] MEDS ORDERED: Acetaminophen 325 MG TABLET PO PRN (18:40)
[2018-08-17] MEDS: Ibuprofen 600 MG TABLET PO PRN (20:53)
[2018-08-18] MEDS: Ibuprofen 600 MG TABLET PO PRN (05:00)
[2018-08-18] MEDS ORDERED: Prenatal Vit/FA 1 EACH TABLET PO SCH (09:00)
[2018-08-18] MEDS ORDERED: Simethicone 80 MG TAB.CHEW PO PRN (09:33)
[2018-08-18] MEDS ORDERED: MOM Conc 10 ML UD.LIQ PO ONE (09:33)
--- NOTE | 2018-08-18 10:22 | Discharge Summary ---
Date of Encounter: 08/18/18 Time of Encounter: 10:18 - Discharge Diagnosis (1) Vaginal delivery Priority: Primary Status: Acute Comments: S/P Vaginal delivery day 1 Pain is well controlled Lochia is light and without clots VSS Tolerating regular diet; passing flatus Voiding without difficulty Discharge home today POC per consult with Dr Yoo (2) Gestational diabetes Priority: Secondary Status: Acute Comments: Will need 2 hour GTT fasting at appointment Qualifiers: Gestational diabetes mellitus control: oral hypoglycemic-controlled Trimester: third trimester Qualified Code(s): O24.415 - Gestational diabetes mellitus in , controlled by oral hypoglycemic drugs - Discharge Medications Prescriptions: New Breast Pump [BREAST PUMP] 1 each .ROUTE AD #1 each Docusate [Colace] 100 mg PO BID #30 capsule Benzocaine/Menthol Clarkson [Dermoplast Clarkson] 1 appl TP QID PRN aerosol PRN Reason: See Comments Ferrous Sulfate 325 mg PO DAILY #90 tablet Lanolin [Lansinoh] 1 appl TP TID PRN oint...g. PRN Reason: Sore Nipples Ibuprofen [Motrin] 600 mg PO Q6HR PRN 30 Days tablet PRN Reason: Cramping Acetaminophen [Tylenol] 650 mg PO Q6HR PRN tablet PRN Reason: Mild Pain Continued Pnv Cmb#21/Iron/Folic Acid [ Complete Caplet] 1 each PO DAILY Discontinued Vit/FA 1 each PO DAILY tablet Metformin HCl [Glucophage] 1,000 mg PO DAILY Metformin HCl 500 mg PO DAILY Home Medications: Pnv Cmb#21/Iron/Folic Acid [ Complete Caplet] 1 each PO DAILY 09/02/16 [History] Acetaminophen [Tylenol] 650 mg PO Q6HR PRN tablet 08/18/18 [Rx] Benzocaine/Menthol Clarkson [Dermoplast Clarkson] 1 appl TP QID PRN aerosol 08/18/18 [Rx] Breast Pump [BREAST PUMP] 1 each .ROUTE AD #1 each 08/18/18 [Rx] Docusate [Colace] 100 mg PO BID #30 capsule 08/18/18 [Rx] Ferrous Sulfate 325 mg PO DAILY #90 tablet 08/18/18 [Rx] Ibuprofen [Motrin] 600 mg PO Q6HR PRN 30 Days tablet 08/18/18 [Rx] Lanolin [Lansinoh] 1 appl TP TID PRN oint...g. 08/18/18 [Rx] Allergies/Adverse Reactions: Allergy/AdvReac Type Severity Reaction Status Date / Time No Known Allergies Allergy Verified 08/08/18 13:14 Data Procedures and tests throughout hospitalization: Laboratory Tests 08/17/18 08/17/18 08/17/18 06:35 06:35 06:35 WBC 12.1 H RBC 3.69 L Hgb 12.0 Hct 36.0 MCV 97.6 MCH 32.5 MCHC 33.3 RDW 13.2 Plt Count 157 MPV 13.4 H Immature Gran % 1.4 Seg Neutrophils % 73.0 Lymphocytes % 18.0 Monocytes % 6.9 Eosinophils % 0.5 Basophils % 0.2 Neutrophils # 8.8 Lymphocytes # 2.2 Monocytes # 0.8 Eosinophils # 0.1 Basophils # 0.0 Glucose 96 POC Glucose Urine Opiates Screen Negative Ur Barbiturates Screen Negative Ur Phencyclidine Scrn Negative Ur Amphetamines Screen Negative U Benzodiazepines Scrn Negative Urine Cocaine Screen Negative U Marijuana (THC) Screen Positive H Ur Drug Screen Interp See Below 08/17/18 08/17/18 12:51 22:34 WBC RBC Hgb Hct MCV MCH MCHC RDW Plt Count MPV Immature Gran % Seg Neutrophils % Lymphocytes % Monocytes % Eosinophils % Basophils % Neutrophils # Lymphocytes # Monocytes # Eosinophils # Basophils # Glucose POC Glucose 86 101 H Urine Opiates Screen Ur Barbiturates Screen Ur Phencyclidine Scrn Ur Amphetamines Screen U Benzodiazepines Scrn Urine Cocaine Screen U Marijuana (THC) Screen Ur Drug Screen Interp Labs on day of discharge: Labs from last 24 hours 08/17/18 08/17/18 22:34 12:51 POC Glucose 101 H 86 Date of admission: 08/17/18 06:09 Primary care physician: Mihir Benjamin Consults: 08/17/18 18:40 Consult to Calliope Player [CONS] Routine Comment: Vaginal delivery, consult needed Discharging clinician: Leana Fall Anticipated date of discharge: 08/18/18 - Patient Status Disposition: Home, Self-Care Condition: Good Functional capacity at discharge: independent ambulation Overall status at discharge: patient is progressing back to baseline - Discharge Instructions Follow Up With: Mihir Benjamin MD [Primary Care Provider] - Hale,Nilton S, DO [Partnered Physician] - - Diet and Activity Activity: increase activity as tolerated Diet: regular diet Hospital Course Reason for admission: IUP at term Delivery: Episiotomy: none Laceration: none Other procedures: none complications: none Discharge diagnosis: IUP at term delivered [place] baby: female Time spent discussing smoking cessation with patient: 3 to 10 minutes Time Attestation: Total time spent providing and/or coordinating discharge services: Time Spent: Less than 30 minutes Exam - Constitutional Vitals: Temp Pulse Resp BP Pulse Ox 98.2 F 64 16 120/78 98 08/18/18 04:56 08/18/18 04:56 08/18/18 04:56 08/18/18 04:56 08/18/18 04:56 General appearance IM: cooperative, A&O X 3, pleasant, answers questions appropriately - Respiratory Respiratory exam: Present: CTAB - Cardiovascular Cardiovascular exam IM: Present: RRR, +S1, +S2 - GI/Abdominal GI/Abdominal exam IM: normal bowel sounds, soft - Rectal Rectal exam: deferred - Uterine Tone: Firm Uterus Position: At Umbilicus, Midline - Extremities Exam Extremities exam IM: Present: normal capillary refill, normal inspection, radial pulses palpable and symmetrical - Neurological Exam Neurological exam: alert, oriented X3
[2018-08-18 10:24] VITALS: BP 116/67
== END 2018-08-18 12:15 | disposition home or self-care (01) | DRG 560 ==
LOC: 1NENULAB 06:09 → 1NENUOBS 18:38
PROVIDERS: ADMIT Obstetrics & Gynecology; ATTEND Obstetrics & Gynecology